=== PATIENT | female | born 1985 ===

== ENCOUNTER → 2020-12-16 | Day surgery (SDC) | payer OTHER ==
[~2020-12-16] VITALS: Ht 162.6 cm; Wt 91.2 kg
[~2020-12-16] MED LIST: 3IN1 COMMODE XX; AMOXICILLIN500 MG PO; METRONIDAZOLE500 MG PO; MOTRIN600 MG PO; PERCOCET 5-3251 EACH PO; PHENERGAN25 M1 PO; PREDNISONE 10MG10 MG PO
[2020-12-16 07:50] LABS: HCG (URINE) SCREEN NEGATIVE (NEGATIVE)
[2020-12-16 07:57] LABS: BASOPHIL 0.5 % (0-2); EOSINOPHIL 1.7 % (0-5); HCT 39.4 % (37.0-47.0); HGB 12.4 g/dl (12.5-16.0); LYMPHOCYTE 27.6 % (15-48); MCH 26.8 pg (25.0-31.0); MCHC 31.5 g/dL (32.0-36.0); MCV 85.3 fL (78.0-100.0); MONOCYTE 6.9 % (0-12); MPV 11.5 fL (6.0-9.5); NRBC 0; PLT 207 K/uL (150-400); RBC 4.62 M/uL (4.20-5.40); RDW 14.6 % (11.5-14.0); WBC 9.2 K/uL (4.0-10.5)
== END | disposition home or self-care (01) ==
LOC: FAS 06:58
PROVIDERS: Oral & Maxillofacial Surgery
DX: K02.9 Dental caries, unspecified (principal); K04.7 Periapical abscess without sinus
CPT/HCPCS: 36415; 84703; 85025; J1100; J1170; J2250; J2405; J2704; J2710; J3010; J7120